=== PATIENT | female | born 1980 | race Caucasian/White ===

== ENCOUNTER 2023-09-19 17:31 | Emergency (ER) | payer SELFPAY ==
--- NOTE | 2023-09-19 17:30 | DI.RAD_ITS ---
Exam(s) XR HIP RT COMPLETE AP PELVIS EXAM: XR HIP RT COMPLETE AP PELVIS CLINICAL HISTORY: R hip pain. TECHNIQUE: 2D digital imaging was performed. Two views COMPARISON: No exams were available for comparison FINDINGS: BONES: No acute fracture is present. No bony destructive lesion is seen. JOINTS: No dislocation present. Hip joint spaces are maintained. SI joints and pubic symphysis are intact. SOFT TISSUE: Normal. IMPRESSION: No acute abnormality. DATA REPOSITORY: RADIATION DOSE DELIVERED:
[2023-09-19 17:34] VITALS: BP 161/104; PULSE 100; RESP 16; TEMP 36.4; O2SAT 97
--- NOTE | 2023-09-19 17:40 | W.ED.GENAD ---
Discharge Plan Disposition Patient Disposition: Eloped Condition: Stable Discharge Details Clinical Impression: Sprain of right hip Primary Care Provider: None,None ED Provider: Fady Padgett Home Meds and New Rx's Prescriptions: New methocarbamol 750 mg tablet 1,500 mg PO QID Qty: 80 0RF Discharge Instructions Instructions: Methocarbamol, Hip Pain ED Additional Instructions: You were seen in the emergency department for your pain of your right lateral hip, this is possibly piriformis syndrome causing some nerve pain radiating down your thigh. This is often worse with sitting, you may follow-up with physical therapy for manual work and exercises to help cure this condition. Please use therapeutic dosing of Tylenol (acetamenophen) & Advil (ibuprofen) in an alternating fashion as follows: Take 1000mg of Tylenol every 6 hours without missing doses- that is 4 times per day. Long Term in between the Tylenol dosings, take 400-600mg of Advil also on a 6 hour schedule, that is also 4 times per day. The daily maximum dosing of Tylenol is 4000mg, and the daily maximum dosing of Advil is 2400mg. This is safe to do for weeks. Please note that some common cold medications & prescription pain medications may contain acetamenophen and you need to read OTC drug labels and factor that in to maximum daily dosings. Use a lidocaine patch to the area for 12 hours each day. Use the prescribed methocarbamol for nonsedating muscle relaxation. Use gentle heat and massage to the area, please return to the emergency department for any severe increase in back pain especially fever, urinary retention, loss of bowel without noticing it and complete neurovascular compromise or inability to use the right lower extremity Stand Alone Forms: Physical Therapy Referral HPI General Date/Time Provider Initiated Documentation: 09/19/23 17:40. HPI Narrative: 43 year-old female presents to ED today by POV/ambulating with a chief complaint of R lateral hip pain with onset worsening this week after a minor fall last week- worse when she is sitting driving. Quality described as dull ache in musculature of lateral hip, occasional sharp shooting pains through the thigh, no radiation to numbness, inability to ambulate, pain deep inside the hip joint, low back pain, urinary retention, bowel incontinence. Severity is described as moderate to severe at times. Palliating factors include had ibuprofen around 1500. Provoking factors include nothing specific. Patient not anticoagulated. Related Data Home Medications Medication Instructions Recorded Confirmed methocarbamol 750 mg tablet 1,500 mg (2 x 750 mg) PO QID 09/19/23 muscle spasm #80 tabs Previous Rx's Medication Instructions Recorded methocarbamol 750 mg tablet 1,500 mg (2 x 750 mg) PO QID 09/19/23 muscle spasm #80 tabs Allergies Allergy/AdvReac Type Severity Reaction Status Date / Time No Known Allergies Allergy Unverified 09/19/23 17:40 General Stated Complaint: Orthopedic KIERRA: 4 Review of Systems All systems reviewed & are unremarkable except as noted in HPI and below Exam Narrative Exam Narrative: GENERAL APPEARANCE: Well-nourished, non-toxic, awake and alert, atraumatic, no acute distress. SKIN: Warm, pink, dry, intact, without rashes/lesions/ulcerations. HEAD: Normocephalic, atraumatic, normal hair distribution for gender/age. EYES: Pupils PERRLA, EOMs intact without nystagmus, normal conjunctiva, no exudates on lids/lashes. ENT: Nares patent, no circumoral cyanosis, no facial swelling NECK: Supple, trachea midline, painless cervical ROM. LUNGS/CHEST: Lungs CTA bilaterally, non-labored respirations, normal A/P diameter, symmetrical expansion, no chest wall deformity HEART (CV/PV): Regular rate and rhythm without murmur, no peripheral edema, no JVD. ABDOMEN: Soft, non-distended, no guarding. MSK: Normal ROM, no swelling/deformity to bilateral UEs or LEs, moving all extremities without weakness, no cyanosis, spine midline without tenderness, normal curvature. NEURO: Mental Status AAOx4 - alert to person, place, time, events No facial droop, no forehead involvement. Motor: No focal weakness - strength 5/5 in bilateral UEs and LEs, proximal and distal, symmetric. Sensory: sensation intact to light touch globally. Gait normal: patient ambulated without ataxia into ED room. PSYCH: euthymic, cooperative, pleasant, appropriate speech Course Vital Signs Vital signs: Vital Signs Temperature 36.4 C L 09/19/23 17:34 Pulse 100 H 09/19/23 17:34 Respiratory Rate 16 09/19/23 17:34 Blood Pressure 161/104 H 09/19/23 17:34 Pulse Oximetry 97 06/22/24 17:34 Temperature 36.4 C L 09/19/23 17:34 Temperature Source Temporal Artery Scan 09/19/23 17:34 Pulse 100 H 09/19/23 17:34 Respiratory Rate 16 09/19/23 17:34 Blood Pressure 161/104 H 09/19/23 17:34 Blood Pressure Position Sitting 09/19/23 17:34 Pulse Oximetry 97 09/19/23 17:34 Oxygen Delivery Method Room Air 09/19/23 17:34 Oxygen Flow Rate 0 09/19/23 17:34 Pain Level 5 09/19/23 17:34 Medical Decision Making This dictation utilizes [id number] dictation software and may contain unedited grammatical errors. 43 year-old female presents to ED today by POV/ambulating with a chief complaint of R lateral hip pain with onset worsening this week after a minor fall last week- worse when she is sitting driving. Quality described as dull ache in musculature of lateral hip, occasional sharp shooting pains through the thigh, no radiation to numbness, inability to ambulate, pain deep inside the hip joint, low back pain, urinary retention, bowel incontinence. Severity is described as moderate to severe at times. Palliating factors include had ibuprofen around 1500. Provoking factors include nothing specific. Patients' medical history: Negative, otherwise healthy. Family and social history: Noncontributory. Pertinent exam findings / vital signs include mild tenderness in the musculature of the right lateral hip, sensation intact distal, strength 5/5 in and hip flexion and extension of the right lower extremity, no crepitus or deformity, able to ambulate. Differential / pathologies of concern include sprain/strain, fracture, muscle spasm, piriformis syndrome. Diagnostic studies of: -XR R Hip - no acute fracture seen. Interventions of: -Rx for methocarbomol, recommend therapeutic NSAID/APAP, lido patching, gentle heat/massage. ED Course/Assessment/Plan: 43-year-old female presents with right lateral hip pain after a minor fall last week, it is worsening over this week. Is worse when she sitting I do suspect she has an element of piriformis syndrome and likely sprain with muscle spasm. No acute fractures on x-ray, counseled on therapeutic dosing of Tylenol and ibuprofen, lidocaine patch, provided methocarbamol by prescription for muscle relaxation and PT referral. Patient left without paperwork, declined it, left prior to XR read. Findings not consistent with fracture, NV compromise. Disposition of Sprain of Right Hip. Patient verbalized understanding of the plan and return to ED criteria and engaged in shared decision making. Medical Records Medical records reviewed: Yes I reviewed the patient's medical records. Imaging Data Radiologic Study: Attestation: I personally reviewed and interpreted this imaging study as follows: Imaging: X-Ray Radiologist's impression: Exam: XR Right Hip Exam date and time: 09/19/2023 5:59 PM Age: 43 years old Clinical indication: Other: Right hip pain / leg spasams TECHNIQUE: Imaging protocol: Radiologic exam of the right hip. Views: 2 or 3 views hip with pelvis when performed. COMPARISON: No relevant prior studies available. FINDINGS: Bones/joints: Unremarkable. No acute fracture. Soft tissues: Unremarkable. IMPRESSION: No evidence for acute abnormality. Dictated and Authenticated by: Ella Osborne MD. Quality:SDOH Health Related Social Needs: No Data to Display PFSH All Active Problems (Updated 09/19/23 @ 18:33 by JOVANNA Ching) Sprain of right hip (Acute) Social History Smoking/Tobacco Use Status: Current every day Tobacco Type: cigarettes Smoking risk assessment performed?: Yes Alcohol Intake: current Alcohol Intake frequency: a few times a month Drug use: Never Substance use type: does not use Do you feel safe at home: Yes Do you feel safe in your relationship?: Yes
[2023-09-19] MEDS: Methocarbamol 750 MG TAB 1500 MG PO (18:57)
--- NOTE | 2023-09-19 19:59 | DI.VRAD_ITS ---
PROCEDURE INFORMATION: Exam: XR Right Hip Exam date and time: 09/19/2023 5:59 PM Age: 43 years old Clinical indication: Other: Right hip pain / leg spasams TECHNIQUE: Imaging protocol: Radiologic exam of the right hip. Views: 2 or 3 views hip with pelvis when performed. COMPARISON: No relevant prior studies available. FINDINGS: Bones/joints: Unremarkable. No acute fracture. Soft tissues: Unremarkable. IMPRESSION: No evidence for acute abnormality. Dictated and Authenticated by: Ella Osborne MD. Ordering:JEREMY Shrestha MD
== END 2023-09-19 19:00 | disposition left against medical advice (07) ==
PROVIDERS: Emergency Provider Physician Assistant
DX: S73.101A Unspecified sprain of right hip, initial encounter (principal); W19.XXXA Unspecified fall, initial encounter
CPT/HCPCS: 99283; 73502